=== PATIENT | female | born 1955 | race Caucasian/White ===

== ENCOUNTER → 2017-12-03 | Outpatient (CLI) | payer MEDICARE, MEDICAID ==
[~2017-12-03] MED LIST: ALBU8.5H IH; ALBU8.5H12 IH; AMIT-106 PO; AMIT-108 PO; APIX5TAB PO; ASPI-715 PO; ASPI1TAB17 PO; ATOR40TA69 PO; BECL8.7A6 IH; CEP500 PO; CHOL200025 PO; CHOL500025 PO; CHOLESTEROL MED; CITA-128 PO; EZET10TA41 PO; FLU45SYR25 IM ONLY; FLU60SYR30 IM ONLY; HYDR-2966 PO; IBUP200C72 PO; LEV125 PO; LEV25 PO; LEVO-3 PO; LEVO150T78 PO; MECL25TA27 PO; MECL25TA9 PO; MET50 PO; MORP-1 PO; OMEP-153 PO; OMEP20CA68 PO; OXYGENHOME INH; PANT40TA65 PO; PER PO; PERCOCET; PRAV20TA66 PO; PRAV40TA78 PO; PROP60CA22 PO; RAN150 PO; RANI-318 PO; RIVA20TA PO; SOLI10TA8 PO; SULF-198 PO; TRA50 PO; WARF-18 PO; [UNRECOGNIZED DRUG - CODE] PO
--- NOTE | 2017-12-04 08:56 | RADIOLOGY IMAGING REPORT ---
FACILITY: [facility] - [place], [place] PATIENT NAME: ADRIEL SON : [id number] MR: [id number] V: [id number] EXAM DATE: ORDERING PHYSICIAN: DINORA BLACKMAN TECHNOLOGIST: Marleni Salter PROCEDURE:BILATERAL DIGITAL SCREENING MAMMOGRAM WITH CAD ASSISTED INTERPRETATION AND 3D BREAST TOMOSYNTHESIS. COMPARISON:Prior mammograms dated 10/26/13. INDICATIONS:SCREENING FINDINGS: There is predominant fatty replacement throughout the breasts. The parenchymal pattern has remained stable when allowing for difference in mammographic technique and patient positioning. There is no evidence of malignant appearing mass, malignant appearing calcification or other secondary sign of malignancy in either breast. DIAGNOSTIC CATEGORY 1--NEGATIVE. RECOMMENDATIONS: ROUTINE MAMMOGRAM AND CLINICAL EVALUATION. IMPRESSION: Bi-RADS 1: No significant abnormality is seen. Images were reviewed with R2CAD and 3D breast tomosynthesis. Dictated by: Bebe Gonzalez M.D. on 12/03/2017 at 16:22 Transcribed by: SYBIL on 12/03/2017 at 18:53 Approved by: Bebe Gonzalez M.D. on 12/04/2017 at 8:55 [facility]
== END ==
LOC: MAMO 00:35
PROVIDERS: ATTEND Emergency Medicine
DX: Z12.31 Encounter for screening mammogram for malignant neoplasm of breast (principal)
CPT/HCPCS: 77063; 77067

== ENCOUNTER 2017-12-24 01:00 | Day surgery (SDC) | payer MEDICARE, MEDICAID ==
[~2017-12-24] VITALS: Ht 170.2 cm; Wt 161.9 kg
[2017-12-24] VITALS (7 sets, daily range): BP systolic 84–124; BP diastolic 65–95
[~2017-12-24 01:00] MED LIST changes: +ACET500T68 PO
[2017-12-24] MEDS ORDERED: NORMOSOL R SOLN(*) 1000 ML BAG 1,000 ML IV PRN (08:50)
[2017-12-24] MEDS ORDERED: LIDOCAINE/SOD BICARB 8.4% SYR ID ONE (08:50)
[2017-12-24] MEDS ORDERED: MIDAZOLAM 2 MG/2 ML VIAL IVP PRN (08:50)
--- NOTE | 2017-12-24 11:04 | Short(Outpt) Discharge Summary ---
Discharge Summary Reason for Hosp/Final Diag: (1) Constipation Status: Chronic Hospital Course & Plan: Colonoscopy with polypectomy x7 completed without problems. (2) BRBPR (bright red blood per rectum) Status: Chronic Departure Discharge to: Home, Self Care Discharge Instructions Home Meds Active Scripts Cholecalciferol (Vitamin D3) (VITAMIN D3) 2,000 Unit Capsule, 2000 UNIT PO DAILY , #90 CAPSULE 3 Refills Prov:DINORA BLACKMAN MD 11/28/17 Levothyroxine Sodium (LEVOTHYROXINE SODIUM) 150 Mcg Tablet, 150 MCG PO QDAY, # 90 TAB 3 Refills Prov:DINORA BLACKMAN MD 11/28/17 Atorvastatin Calcium (ATORVASTATIN CALCIUM) 40 Mg Tablet, 1 TAB PO QDAY, #90 TAB 3 Refills Prov:DINORA BLACKMAN MD 11/28/17 Apixaban (ELIQUIS) 5 Mg Tablet, 5 MG PO BID, #60 TAB 11 Refills Start taking at the time of next Xareelto dose. Prov:DINORA BLACKMAN MD 09/29/17 Ezetimibe (ZETIA) 10 Mg Tablet, 1 TAB PO QDAY, #90 TAB 3 Refills Prov:DINORA BLACKMAN MD 08/25/17 Morphine Sulfate 15 Mg Tab (MORPHINE SULFATE 15 MG TAB) 15 Mg Tablet, 15 MG PO BID Y for PAIN, #60 TAB Prov:DINORA BLACKMAN MD 07/29/17 Hydrochlorothiazide (HYDROCHLOROTHIAZIDE) 25 Mg Tablet, 0.5 TAB PO QDAY, #15 TAB 11 Refills Prov:DINORA BLACKMAN MD 07/28/17 Solifenacin Succinate (VESICARE) 10 Mg Tablet, 10 MG PO DAILY, #30 TAB 11 Refills Prov:DINORA BLACKMAN MD 02/27/17 Pantoprazole Sodium (PANTOPRAZOLE SODIUM) 40 Mg Tablet.dr, 1 TAB PO HS, #90 TAB 3 Refills Prov:DINORA BLACKMAN MD 02/03/17 Propranolol Hcl (PROPRANOLOL HCL) 60 Mg Cap.sa.24h, 1 CAP PO BID, #180 TAB 3 Refills Prov:DINORA BLACKMAN MD 01/29/17 Meclizine Hcl (MECLIZINE HCL) 25 Mg Tablet, 25 MG PO QID Y for DIZZINESS, #360 TAB 3 Refills Prov:DINORA BLACKMAN MD 10/21/16 Reported Medications Acetaminophen (TYLENOL EXTRA STRENGTH) 500 Mg Tablet, 1-2 TAB PO DAILY Y for PAIN/HEADACHE, TAB 12/17/17 Aspirin/Sod Bicarb/Citric Acid (JAQUELIN-SELTZER ORIGINAL TAB EFF) 1 Each Tablet.eff , 1 EACH PO BID Y for INDIGESTION 10/17/16 Ranitidine Hcl (RANITIDINE HCL) 150 Mg Tablet, 1 TAB PO HS 10/17/16 Omeprazole Magnesium (OMEPRAZOLE MAGNESIUM) 20 Mg Capsule.dr, 1 TAB PO QDAY, CAP 10/17/16 Albuterol Sulfate 90 Mcg/Act (PROAIR HFA 90 MCG/ACT) 8.5 Gm Hfa.aer.ad, 1-2 PUFF IH BID Y for CONGESTION, INHALER 10/17/16 Discontinued Scripts Peg 3350/Na Sulf,Bicarb,Cl/Kcl (GAVILYTE-G SOLUTION) 4,000 Ml Soln.recon, 1 GAL PO ONCE, #1 GAL 0 Refills Prov:JAMAL GARCIA MD 12/02/17 Amitriptyline Hcl (AMITRIPTYLINE HCL) 50 Mg Tablet, 50 MG PO QHS, #90 TAB 3 Refills Prov:DINORA BLACKMAN MD 08/25/17 Follow up Referrals: General Surgery - 01/16/18 @ Surgery, General with Jamal Garcia Md You have a follow up appointment scheduled with Dr. Garcia on 01/16/18, at 11:30am. Diet: Regular Activity: As Tolerated Special Instructions: Your colonoscopy was completed without any problems and your prep was excellent (Good Job!!). I removed 7 polyps from your colon and sent them to pathology. Continue the bowel regimen I put you on when I say you in my office the first time and we'll modify it when I see you back if it's not effective. You can restart your Eliquis on 12/17/17. Problem Qualifiers (1) Constipation: Constipation type: unspecified constipation type Qualified Codes: K59.00 - Constipation, unspecified JAMAL GARCIA MD Dec 24, 2017 11:04
[2017-12-24] MEDS ORDERED: PROPOFOL EMUL(*) 10MG/ML 20 ML 20 ML ONE (12:01)
[2017-12-24] MEDS ORDERED: LIDOCAINE MPF 1% 5 ML VIAL ONE (12:01)
== END 2017-12-24 12:00 | disposition home or self-care (01) ==
LOC: OR 01:00
PROVIDERS: ATTEND Surgery
DX: Z12.11 Encounter for screening for malignant neoplasm of colon (principal); D12.2 Benign neoplasm of ascending colon; D12.3 Benign neoplasm of transverse colon; K63.5 Polyp of colon
CPT/HCPCS: 00811; 45385; 88305; J2001; J2704

== ENCOUNTER 2018-03-13 06:24 | Emergency (ER) | payer MEDICARE, MEDICAID ==
[~2018-03-13 06:24] MED LIST changes: -WARF-18 PO; +WARF5TAB23 PO
--- NOTE | 2018-03-13 06:26 | ER Report ---
History and Physical Time Seen By MD: 06:26 (SOPHIA SHEN DO) HPI/ROS CHIEF COMPLAINT: Woke up with chest pounding HISTORY OF PRESENT ILLNESS: 62-year-old female with a history of atrial fibrillation on Eliquis and hypertension who retired to bed in her usual state of health last night. She wears CPAP when she sleeps. She woke up this morning to a pounding hard and diaphoresis. She notes some chest tightness and shortness of breath. Patient reports she presented with a similar presentation back in 1999. She states at that time she was told she had GERD. Recently patient had an endoscopy in 03/2017, which was unremarkable.. More recently she underwent colonoscopy in December of this year for bright red blood per rectum on [facility]. She had 7 polyps removed. REVIEW OF SYSTEMS: Respiratory: As above Cardiovascular: As above Gastrointestinal: No vomiting, no abdominal pain. Musculoskeletal: No back pain. (SOPHIA SHEN DO) Allergies: Coded Allergies: No Known Drug Allergies (Verified , 03/25/08) Uncoded Allergies: ENVIRONMENTAL (Allergy, Mild, ASTHMA SX, 08/07/12) Home Meds Active Scripts Solifenacin Succinate (VESICARE) 10 Mg Tablet, 10 MG PO DAILY, #90 TAB 1 Refill Prov:DINORA BLACKMAN MD 02/27/18 Pantoprazole Sodium (PANTOPRAZOLE SODIUM) 40 Mg Tablet.dr, 1 TAB PO HS, #90 TAB 3 Refills Prov:DINORA BLACKMAN MD 02/05/18 Cholecalciferol (Vitamin D3) (VITAMIN D3) 2,000 Unit Capsule, 2000 UNIT PO DAILY , #90 CAPSULE 3 Refills Prov:DINORA BLACKMAN MD 11/28/17 Levothyroxine Sodium (LEVOTHYROXINE SODIUM) 150 Mcg Tablet, 150 MCG PO QDAY, # 90 TAB 3 Refills Prov:DINORA BLACKMAN MD 11/28/17 Atorvastatin Calcium (ATORVASTATIN CALCIUM) 40 Mg Tablet, 1 TAB PO QDAY, #90 TAB 3 Refills Prov:DINORA BLACKMAN MD 11/28/17 Apixaban (ELIQUIS) 5 Mg Tablet, 5 MG PO BID, #60 TAB 11 Refills Start taking at the time of next Xareelto dose. Prov:DINORA BALCKMAN MD 09/29/17 Ezetimibe (ZETIA) 10 Mg Tablet, 1 TAB PO QDAY, #90 TAB 3 Refills Prov:DINORA BLACKMAN MD 08/25/17 Morphine Sulfate 15 Mg Tab (MORPHINE SULFATE 15 MG TAB) 15 Mg Tablet, 15 MG PO BID Y for PAIN, #60 TAB Prov:DINORA BLACKMAN MD 07/29/17 Hydrochlorothiazide (HYDROCHLOROTHIAZIDE) 25 Mg Tablet, 0.5 TAB PO QDAY, #15 TAB 11 Refills Prov:DINORA BLACKMAN MD 07/28/17 Propranolol Hcl (PROPRANOLOL HCL) 60 Mg Cap.sa.24h, 1 CAP PO BID, #180 TAB 3 Refills Prov:DINORA BLACKMAN MD 01/29/17 Meclizine Hcl (MECLIZINE HCL) 25 Mg Tablet, 25 MG PO QID Y for DIZZINESS, #360 TAB 3 Refills Prov:DINORA LBACKMAN MD 10/21/16 Reported Medications Acetaminophen (TYLENOL EXTRA STRENGTH) 500 Mg Tablet, 1-2 TAB PO DAILY Y for PAIN/HEADACHE, TAB 12/17/17 Aspirin/Sod Bicarb/Citric Acid (JAQUELIN-SELTZER ORIGINAL TAB EFF) 1 Each Tablet.eff , 1 EACH PO BID Y for INDIGESTION 10/17/16 Ranitidine Hcl (RANITIDINE HCL) 150 Mg Tablet, 1 TAB PO HS 10/17/16 Omeprazole Magnesium (OMEPRAZOLE MAGNESIUM) 20 Mg Capsule.dr, 1 TAB PO QDAY, CAP 10/17/16 Albuterol Sulfate 90 Mcg/Act (PROAIR HFA 90 MCG/ACT) 8.5 Gm Hfa.aer.ad, 1-2 PUFF IH BID Y for CONGESTION, INHALER 10/17/16 Past Medical/Surgical History Past Medical History Neurologic: Reports hx of: migraine Cardiovascular: Reports hx of: atrial fibrillation hyperlipidemia hypertension Respiratory: Reports hx of: asthma sleep apnea Gastrointestinal: Reports hx of: GERD Genitourinary: Reports hx of: other history (urinary incontinence) Endocrine: Reports hx of: hypothyroidism Past Surgical History HEENT: Reports hx of: tonsillectomy Gastrointestinal: Reports hx of: cholecystectomy Gynecologic: Reports hx of: hysterectomy Musculoskeletal: Reports hx of: arthroscopy (knees) (SOPHIA SHEN DO) Reviewed Nurses Notes: Yes Old Medical Records Reviewed: Yes (SOPHIA SHEN DO) Hx Smoking: Yes (SMOKED 1/2 TO 1 PPD FOR 26 YEARS. CHEWED TOBACCO IN TEENS.) Smoking Status: Former Smoker Hx Substance Use Disorder: No Hx Alcohol Use: No (SOPHIA SHEN DO) Constitutional Vital Sign - Last 24 Hours 03/13/18 03/13/18 03/13/18 03/13/18 06:27 06:27 06:30 06:39 Temp 98.9 Pulse 94 92 Resp 20 20 B/P (MAP) 126/96 (106) 126/96 122/83 (96) Pulse Ox 89 91 O2 Delivery Room Air 03/13/18 03/13/18 03/13/18 06:44 06:59 07:00 Pulse 87 84 Resp 15 17 B/P (MAP) 108/79 (89) Pulse Ox 93 91 (WING IGLESIAS MD) Physical Exam General Appearance: The patient is alert, has no immediate need for airway protection and no current signs of toxicity. Mild distress, vital signs stable , afebrile, skin warm, dry, pink HEENT: Pupils equal and round no injection. Oropharynx without redness or exudate, mucous. Membranes are moist Respiratory: Chest is non tender, lungs are clear to auscultation. No wheezing or rails Cardiac: Regular rate and rhythm, distant heart sounds Gastrointestinal: Abdomen is soft and non tender, no masses, bowel sounds normal. Musculoskeletal: Neck: Neck is supple and non tender. No JVD Extremities have full range of motion and are non tender. Skin: No rashes or lesions. DIFFERENTIAL DIAGNOSIS: After history and physical exam differential diagnosis was considered for chest pain including but not limited to myocardial ischemia, pericarditis pulmonary embolus, chest wall pain, pleural inflammation palpitations, anxiety, GERD and pulmonary infectious causes. (SOPHIA SHEN DO) Medical Decision Making Data Points Result Diagram: 03/13/18 0636 03/13/18 0636 Laboratory Hematology Test 03/13/18 06:36 03/13/18 10:06 Red Blood Count 5.16 M/uL (4.17-5.56) Mean Corpuscular Volume 96.1 fL (80.0-96.0) Mean Corpuscular Hemoglobin 32.6 pg (26.0-33.0) Mean Corpuscular Hemoglobin Concent 33.9 g/dL (32.0-36.0) Red Cell Distribution Width 14.3 % (11.5-14.5) Mean Platelet Volume 8.7 fL (7.2-11.1) Neutrophils (%) (Auto) 60.8 % (39.4-72.5) Lymphocytes (%) (Auto) 27.3 % (17.6-49.6) Monocytes (%) (Auto) 8.6 % (4.1-12.4) Eosinophils (%) (Auto) 2.6 % (0.4-6.7) Basophils (%) (Auto) 0.7 % (0.3-1.4) Nucleated RBC Relative Count (auto) 0.1 /100WBC Neutrophils # (Auto) 4.5 K/uL (2.0-7.4) Lymphocytes # (Auto) 2.0 K/uL (1.3-3.6) Monocytes # (Auto) 0.6 K/uL (0.3-1.0) Eosinophils # (Auto) 0.2 K/uL (0.0-0.5) Basophils # (Auto) 0.1 K/uL (0.0-0.1) Nucleated RBC Absolute Count (auto) 0.01 K/uL D-Dimer Quantitative (PE/DVT) < 0.27 ug/ml (0-0.50) Sodium Level 141 mmol/L (137-145) Potassium Level 3.4 mmol/L (3.5-5.0) Chloride Level 102 mmol/L (98-107) Carbon Dioxide Level 28 mmol/L (22-31) Blood Urea Nitrogen 11 mg/dl (7-18) Creatinine 0.90 mg/dl (0.52-1.04) Glomerular Filtration Rate Calc > 60.0 Random Glucose 109 mg/dl (75-110) Calcium Level 10.2 mg/dl (8.4-10.2) Total Bilirubin 0.7 mg/dl (0.2-1.3) Aspartate Amino Transf (AST/SGOT) 23 U/L (0-35) Alanine Aminotransferase (ALT/SGPT) 26 U/L (0-56) Alkaline Phosphatase 115 U/L (0-126) B-Type Natriuretic Peptide 60 pg/ml (0-100) Total Protein 7.4 gm/dl (6.3-8.2) Albumin 3.8 g/dl (3.5-5.0) Troponin I < 0.012 ng/ml Chemistry Test 03/13/18 06:36 03/13/18 10:06 White Blood Count 7.5 k/uL (4.5-11.0) Red Blood Count 5.16 M/uL (4.17-5.56) Hemoglobin 16.8 g/dL (12.0-16.0) Hematocrit 49.6 % (34.0-47.0) Mean Corpuscular Volume 96.1 fL (80.0-96.0) Mean Corpuscular Hemoglobin 32.6 pg (26.0-33.0) Mean Corpuscular Hemoglobin Concent 33.9 g/dL (32.0-36.0) Red Cell Distribution Width 14.3 % (11.5-14.5) Platelet Count 273 K/uL (150-450) Mean Platelet Volume 8.7 fL (7.2-11.1) Neutrophils (%) (Auto) 60.8 % (39.4-72.5) Lymphocytes (%) (Auto) 27.3 % (17.6-49.6) Monocytes (%) (Auto) 8.6 % (4.1-12.4) Eosinophils (%) (Auto) 2.6 % (0.4-6.7) Basophils (%) (Auto) 0.7 % (0.3-1.4) Nucleated RBC Relative Count (auto) 0.1 /100WBC Neutrophils # (Auto) 4.5 K/uL (2.0-7.4) Lymphocytes # (Auto) 2.0 K/uL (1.3-3.6) Monocytes # (Auto) 0.6 K/uL (0.3-1.0) Eosinophils # (Auto) 0.2 K/uL (0.0-0.5) Basophils # (Auto) 0.1 K/uL (0.0-0.1) Nucleated RBC Absolute Count (auto) 0.01 K/uL D-Dimer Quantitative (PE/DVT) < 0.27 ug/ml (0-0.50) Glomerular Filtration Rate Calc > 60.0 Calcium Level 10.2 mg/dl (8.4-10.2) Total Bilirubin 0.7 mg/dl (0.2-1.3) Aspartate Amino Transf (AST/SGOT) 23 U/L (0-35) Alanine Aminotransferase (ALT/SGPT) 26 U/L (0-56) Alkaline Phosphatase 115 U/L (0-126) B-Type Natriuretic Peptide 60 pg/ml (0-100) Total Protein 7.4 gm/dl (6.3-8.2) Albumin 3.8 g/dl (3.5-5.0) Troponin I < 0.012 ng/ml Coagulation Test 03/13/18 06:36 D-Dimer Quantitative (PE/DVT) < 0.27 ug/ml (WING IGLESIAS MD) EKG/Imaging EKG Interpretation 12 lead EK Rhythm: Atrial fibrillation rate of 88 bpm [place]: normal QRS: Low voltage QRS, old inferior Q waves, old anterior Q waves ST segments: normal, no evidence of ischemia, no old EKGs for comparison Imaging X-ray: Single view portable chest x-ray was obtained. I viewed the images myself on the PACS system. My interpretation of the images is: No infiltrate, borderline cardiomegaly, no effusion, comparison to previous chest x-ray dated 10/19/12, no significant change. The radiologist interpretation had no clinically significant variation from this interpretation. (SOPHIA SHEN DO) ED Course/Re-evaluation Clinical Indication for ER IV: IV Access (SOPHIA SHEN DO) ED Course 30 minutes of what the patient describes as palpitations that woke her out of sleep at 0530. She denies chest pain, nausea, diaphoresis, or shortness of breath. She has an abnormal EKG in the emergency department but no acute ischemic changes noted. She has known atrial fibrillation evidence on our requests. She was observed in the emergency department for 6 hours. She did not have any return of her symptoms. She had 2 troponins 4 hours apart, and both were negative. She does wear a CPAP machine at night. She has not been in RVR while in the emergency department. I do not think the source of her discomfort is cardiac ischemia or dysrhythmia. She will continue her prescribed home medication management, and follow-up with her primary care doctor tomorrow. Decision to Disposition Date: Mar 13, 2018 Decision to Disposition Time: 12:04 (WING IGLEISAS MD) Depart Departure Latest Vital Signs Vital Signs Date Time Temp Pulse Resp B/P (MAP) Pulse Ox O2 Delivery O2 Flow Rate FiO2 03/13/18 07:00 108/79 (89) 03/13/18 06:59 84 17 91 03/13/18 06:27 98.9 Room Air (WING IGLESIAS MD) Impression: Primary Impression: Heart palpitations Condition: Improved Disposition: HOME OR SELF-CARE Referrals: DINORA BLACKMAN MD (PCP) Patient Instructions: Palpitations (ED) SOPHIA SHEN DO Mar 13, 2018 06:26 WING IGLESIAS MD Mar 13, 2018 12:08
[2018-03-13] MEDS ORDERED: ASPIRIN 81 MG CHEW PO ONE (06:35)
[2018-03-13 06:44] LABS: PLATELET COUNT, AUTOMATED 273 K/uL (150-450)
--- NOTE | 2018-03-13 06:56 | RADIOLOGY IMAGING REPORT ---
FACILITY: [facility] PATIENT NAME: Melany Baker : 1955 MR: [id number] V: [id number] EXAM DATE: ORDERING PHYSICIAN: SOPHIA SHEN TECHNOLOGIST: Location: [facility] Patient: Melany Baker : 1955 Visit/Account:[id number] Date of Sevice: 03/13/2018 PORTABLE CHEST: Indication: Chest pain and tachycardia. Technique: A single frontal film was obtained. Comparison: 10/19/2012 Skeletal and soft tissue structures: Intact and unchanged. Heart and mediastinum: Within normal limits for portable technique. Lung lara: Well-expanded. No focal parenchymal opacities. No vascular congestion. Pleural spaces: Unremarkable. Impression: No acute process or significant change. Report Dictated By: Kiel Mariano MD at 03/13/2018 6:51 AM Report E-Signed By: Kiel Mariano MD at 03/13/2018 6:52 AM WSN:[id number]
--- NOTE | 2018-03-13 08:31 | EKG ---
FACILITY: [facility] PATIENT NAME: ADRIEL SON : [id number] MR: [id number] V: [id number] EXAM DATE: ORDERING PHYSICIAN: SOPHIA SHEN TECHNOLOGIST: LORETA Kellogg Reason : CARDIAC Blood Pressure : / mmHG Vent. Rate : 088 BPM Atrial Rate : 122 BPM P-R Int : 000 ms QRS Dur : 084 ms QT Int : 354 ms P-R-T Axes : 000 -02 069 degrees QTc Int : 428 ms Atrial fibrillation Low voltage QRS Cannot rule out Inferior infarct , age undetermined Cannot rule out Anterior infarct , age undetermined Abnormal ECG No previous ECGs available Confirmed by ANOOP STANFORD ([id number]) on 03/13/2018 4:56:41 PM Referred By: HERMELINDA Confirmed By:ANOOP STANFORD
[2018-03-13 12:00] VITALS: BP 90/78
== END 2018-03-13 12:15 | disposition home or self-care (01) ==
LOC: ER 06:26
DX: R00.2 Palpitations (principal)
CPT/HCPCS: 36415; 71045; 83880; 84484; 85025; 85379; 93005; 99284; A9270; 82040; 82247; 82310; 82374; 82435; 82565; 82947; 84075; 84132; 84155; 84295; 84450; 84460; 84520

== ENCOUNTER → 2018-04-03 | Outpatient (CLI) | payer MEDICARE, MEDICAID ==
[~2018-04-03] MED LIST changes: +BARIUM SULFATE 176 GM BTL PO ONE; +BARIUM SULFATE 340 GM POWD ONE
--- NOTE | 2018-04-03 12:46 | RADIOLOGY IMAGING REPORT ---
FACILITY: [facility] [place] PATIENT NAME: Melany Baker : 1955 MR: [id number] V: [id number] EXAM DATE: ORDERING PHYSICIAN: DINORA BLACKMAN TECHNOLOGIST: Location: [facility] Patient: Melany Baker : 1955 Visit/Account:[id number] Date of Sevice: 04/03/2018 Exam type: ESOPHAGRAM History: Dysphagia Comparison: None. Findings: Double contrast esophagram was performed with thick and thin barium. There is a small hiatal hernia with a moderate amount of gastroesophageal reflux. There is mild narrowing at the lower esophageal s phincter. No mucosal erosions were identified. The fluoroscopy dose area product was 834.82 micro-G ray per meter squared IMPRESSION: 1. Small hiatal hernia with a moderate amount of gastroesophageal reflux and mild narrowing at the l ower esophageal sphincter Report Dictated By: Bebe Gonzalez MD at 04/03/2018 12:41 PM Report E-Signed By: Bebe Gonzalez MD at 04/03/2018 12:43 PM WSN:[email or web address]
== END ==
LOC: RAD 07:03
PROVIDERS: ATTEND Emergency Medicine
DX: K44.9 Diaphragmatic hernia without obstruction or gangrene (principal); K21.9 Gastro-esophageal reflux disease without esophagitis; K22.2 Esophageal obstruction
CPT/HCPCS: 74220

== ENCOUNTER → 2018-04-17 | Outpatient (CLI) | payer MEDICARE, MEDICAID ==
[~2018-04-17] MED LIST changes: -BARIUM SULFATE 176 GM BTL PO ONE; -BARIUM SULFATE 340 GM POWD ONE
== END ==
LOC: LAB 11:42
PROVIDERS: ATTEND Emergency Medicine
DX: E78.5 Hyperlipidemia, unspecified (principal)
CPT/HCPCS: 36415; 82465; 83718; 84478

== ENCOUNTER 2018-06-10 00:56 | Day surgery (SDC) | payer MEDICARE, MEDICAID ==
[~2018-06-10] VITALS: Ht 167.6 cm; Wt 168.7 kg
[~2018-06-10 00:56] MED LIST changes: +OMEP-125 PO; +RANI-366 PO
[2018-06-10] MEDS ORDERED: ONDANSETRON 4 MG/2 ML VIAL ONE (07:15)
[2018-06-10] MEDS ORDERED: PROPOFOL EMUL(*) 10MG/ML 20 ML 20 ML ONE ×2 (07:15→11:17)
[2018-06-10] MEDS ORDERED: fentaNYL CITR 100 MCG/2 ML AMP ONE (07:15)
[2018-06-10] MEDS ORDERED: LIDOCAINE MPF 1% 5 ML VIAL ONE (07:15)
[2018-06-10] MEDS ORDERED: DEXAMETHASONE SOD PHOS 10MG/ML ONE (07:15)
[2018-06-10] MEDS ORDERED: ROCURONIUM BROM 10 MG/ML 10 ML ONE (07:15)
[2018-06-10] MEDS ORDERED: NORMOSOL R SOLN(*) 1000 ML BAG 1,000 ML IV PRN (11:30)
[2018-06-10] MEDS ORDERED: LIDOCAINE/SOD BICARB 8.4% SYR ID ONE (11:30)
[2018-06-10 11:35] VITALS: BP 124/77
[2018-06-10 12:33] VITALS: BP 83/43
--- NOTE | 2018-06-10 12:39 | Short(Outpt) Discharge Summary ---
Discharge Summary Reason for Hosp/Final Diag: (1) Dysphagia Status: Chronic Hospital Course & Plan: EGD with esophageal wire-guided bougie dilation completed without problems. Departure Discharge to: Home, Self Care Discharge Instructions Home Meds Active Scripts Meclizine Hcl (MECLIZINE HCL) 25 Mg Tablet, 25 MG PO QID Y for DIZZINESS, #360 TAB 3 Refills Prov:DINORA BLACKMAN MD 05/04/18 Solifenacin Succinate (VESICARE) 10 Mg Tablet, 10 MG PO DAILY, #90 TAB 1 Refill Prov:DINORA BLACKMAN MD 02/27/18 Pantoprazole Sodium (PANTOPRAZOLE SODIUM) 40 Mg Tablet.dr, 1 TAB PO HS, #90 TAB 3 Refills Prov:DINORA BLACKMAN MD 02/05/18 Cholecalciferol (Vitamin D3) (VITAMIN D3) 2,000 Unit Capsule, 2000 UNIT PO DAILY , #90 CAPSULE 3 Refills Prov:DINORA BLACKMAN MD 11/28/17 Levothyroxine Sodium (LEVOTHYROXINE SODIUM) 150 Mcg Tablet, 150 MCG PO QDAY, # 90 TAB 3 Refills Prov:DINORA BLACKMAN MD 11/28/17 Atorvastatin Calcium (ATORVASTATIN CALCIUM) 40 Mg Tablet, 1 TAB PO QDAY, #90 TAB 3 Refills Prov:DINORA BLACKMAN MD 11/28/17 Apixaban (ELIQUIS) 5 Mg Tablet, 5 MG PO BID, #60 TAB 11 Refills Start taking at the time of next Xareelto dose. Prov:DINORA BLACKMAN MD 09/29/17 Ezetimibe (ZETIA) 10 Mg Tablet, 1 TAB PO QDAY, #90 TAB 3 Refills Prov:DINORA BLACKMAN MD 08/25/17 Morphine Sulfate 15 Mg Tab (MORPHINE SULFATE 15 MG TAB) 15 Mg Tablet, 15 MG PO BID Y for PAIN, #60 TAB Prov:DINORA BLACKMAN MD 07/29/17 Propranolol Hcl (PROPRANOLOL HCL) 60 Mg Cap.sa.24h, 1 CAP PO BID, #180 TAB 3 Refills Prov:DINORA BLACKMAN MD 01/29/17 Reported Medications Ranitidine Hcl (ZANTAC) 150 Mg Tablet, 2 TAB PO HS, TAB 05/12/18 Acetaminophen (TYLENOL EXTRA STRENGTH) 500 Mg Tablet, 1-2 TAB PO DAILY Y for PAIN/HEADACHE, TAB 12/17/17 Aspirin/Sod Bicarb/Citric Acid (JAQUELIN-SELTZER ORIGINAL TAB EFF) 1 Each Tablet.eff , 1 EACH PO BID Y for INDIGESTION 10/17/16 Albuterol Sulfate 90 Mcg/Act (PROAIR HFA 90 MCG/ACT) 8.5 Gm Hfa.aer.ad, 1-2 PUFF IH BID Y for CONGESTION, INHALER 10/17/16 Discontinued Reported Medications Omeprazole (OMEPRAZOLE) 20 Mg Capsule.dr, 1 CAP PO QDAY, CAP 05/12/18 Diet: Regular Activity: As Tolerated Special Instructions: Your endoscopy was completed without problems and I dilated your esophagus. You have some mild inflamation in your lower stomach which isn't uncommon but if you are developing pain in your upper abdomen then we may consider changing your stomach medications. Please call my office if you have any questions or concerns about your GI symptoms or if you start to have food hanging up in your esophagus. Problem Qualifiers (1) Dysphagia: Dysphagia type: esophageal phase Qualified Codes: R13.10 - Dysphagia, unspecified JAMAL GARCIA MD Jun 10, 2018 12:39
[2018-06-10 13:00] VITALS: BP 110/69
[2018-06-10 13:04] VITALS: BP 109/78
[2018-06-10 13:07] VITALS: BP 118/92
== END 2018-06-10 13:22 | disposition home or self-care (01) ==
LOC: OR 00:56
PROVIDERS: ATTEND Surgery
DX: K44.9 Diaphragmatic hernia without obstruction or gangrene (principal); K29.70 Gastritis, unspecified, without bleeding
CPT/HCPCS: 43248; J1100; J2001; J2405; J2704; J3010

== ENCOUNTER → 2018-08-28 | Outpatient (CLI) | payer MEDICARE, MEDICAID ==
[~2018-08-28] MED LIST changes: +FLU180SY11 IM; +PNEU0.5D3 IM
== END ==
LOC: LAB 09:34
PROVIDERS: ATTEND Emergency Medicine
DX: R73.09 Other abnormal glucose (principal)
CPT/HCPCS: 36415; 83036

== ENCOUNTER → 2018-10-26 | Outpatient (CLI) | payer MEDICARE, MEDICAID ==
[~2018-10-26] MED LIST changes: +CIPR-344 PO; +METF500T4 PO
[2018-10-26 15:24] LABS: PLATELET COUNT, AUTOMATED 297 K/uL (150-450)
== END ==
LOC: LAB 14:17
PROVIDERS: ATTEND Emergency Medicine
DX: R30.0 Dysuria (principal); E21.0 Primary hyperparathyroidism; R51 Headache; N39.0 Urinary tract infection, site not specified
CPT/HCPCS: 36415; 81001; 82310; 82374; 82435; 82565; 82947; 84132; 84295; 84443; 84520; 85025; 87077; 87088; 87186

== ENCOUNTER → 2019-01-26 | Outpatient (CLI) | payer MEDICARE, MEDICAID ==
[~2019-01-26] MED LIST changes: +CIPR-214 PO; +TRAZ50TA34 PO
[2019-01-26 14:44] LABS: PLATELET COUNT, AUTOMATED 307 K/uL (150-450)
== END ==
LOC: LAB 14:00
PROVIDERS: ATTEND Emergency Medicine
DX: E21.0 Primary hyperparathyroidism (principal)
CPT/HCPCS: 36415; 81001; 82310; 82374; 82435; 82565; 82947; 84132; 84295; 84520; 85007; 85027

== ENCOUNTER → 2019-01-29 | Outpatient (CLI) | payer MEDICARE, MEDICAID | LOC: LAB 10:07 | PROVIDERS: ATTEND Emergency Medicine | DX: E21.0 Primary hyperparathyroidism (principal); N39.0 Urinary tract infection, site not specified | CPT/HCPCS: 36415; 82310 ==

== ENCOUNTER 2019-02-01 10:05 | Outpatient (RCR) | payer MEDICARE, MEDICAID ==
[2019-02-02] MEDS ORDERED: IOPAMIDOL 61% 100 ML INFUS BTL 100 ML ONE (08:02)
--- NOTE | 2019-02-02 08:37 | RADIOLOGY IMAGING REPORT ---
FACILITY: [facility] PATIENT NAME: Melany Baker : 1955 MR: [id number] V: [id number] EXAM DATE: ORDERING PHYSICIAN: DINORA BLACKMAN TECHNOLOGIST: Location: [facility] [place] Patient: Melany Baker : 1955 Visit/Account:[id number] Date of Sevice: 02/02/2019 DEXA Scan Clinical history: Primary hyperparathyroidism. Comparison: 02/11/2017. . FOREARM: The bone mineral density (BMD) measured in the ULTRA DISTAL left forearm, where trabecular bone predo minates, correlates with a Z-score of -0.6 and a T-score of -2.0 which is osteopenic as defined by th e World Health Organization. The corresponding risk of fracture in the distal forearm is moderately increased compared with a young adult reference population. This value has decreased by 1.4 % since t he prior study. More than 5% change is considered significant. The bone mineral density (BMD) in the MIDSHAFT of the forearm, where cortical bone predominates, malcolm elates with a T-score of -2.1 which is osteopenic as defined by the World Health Organization. The co rresponding risk of fracture in the midshaft of the forearm is moderately increased compared with a y oung adult reference population. . IMPRESSION: Left Forearm: Osteopenic. There has been no significant change in the bone mineral density since the previous exam. The next DEXA scan of this patient should include the following sites: Left forearm. FRAX? WHO Fracture Risk Assessment Tool link: <http://www.shef.ac.uk/FRAX/tool.jsp?locationValue=9> PLEASE NOTE: 1) The World Health Organization defines low BMD as follows: T-score Normal > -1 Osteopenia < -1 and > -2.5 Osteoporosis < -2.5 without fractures Established osteoporosis < -2.5 with fractures 2) In general, you may wish to consider: Diagnosis Treatment Follow-up DEXA Normal BMD Prevention 2-3 years Osteopenia Prevention/therapy 1-2 years Osteoporosis Therapy Yearly 3) Fracture risk estimated from the T-score is more accurate for vertebral fractures (often spontane ous) than for hip fractures. Report Dictated By: Antwan Henderson MD at 02/02/2019 8:27 AM Report E-Signed By: Antwan Henderson MD at 02/02/2019 8:33 AM WSN:[email or web address]
--- NOTE | 2019-02-02 11:01 | RADIOLOGY IMAGING REPORT ---
FACILITY: [facility] - [place] PATIENT NAME: Melany Baker : 1955 MR: [id number] V: [id number] EXAM DATE: ORDERING PHYSICIAN: DINORA BLACKMAN TECHNOLOGIST: [place] [facility] [place] : 1955 Visit/Account:[id number] Date of Sevice: 02/02/2019 CT ABDOMEN PELVIS W & W/O CONTRAST HISTORY: Abdominal pain TECHNIQUE: Axial images acquired through the abdomen/pelvis both with and without IV contrast.. [place] nal and sagittal reformatting also performed.Dose Lowering Technique One of the following dose optimization techniques was utilized in the performance of this exam: Autom ated exposure control; adjustment of the mA and/or kV according to the patient's size; or use of an i terative reconstruction technique. Specific details can be referenced in the facility's radiology C T exam operational policy. CONTRAST: 90 mL Isovue-300 COMPARISON: None. FINDINGS: Visualized lung bases: Mild cardiomegaly Hepatobiliary: There postsurgical changes from a cholecystectomy Spleen: Negative. Adrenals: Negative. Pancreas: There is very slight haziness of the peripancreatic fat adjacent to the pancreatic head Kidneys ureters and bladder: There is no demonstration of urolithiasis, hydronephrosis or hydroureter . 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 There are two vague areas of hypoperfusion seen in the interpolar region of the left kidney. The bladder is mostly decompressed therefore not i deally evaluated Genitalia: Hysterectomy GI: There is a small hiatal hernia and mild thickening gastric fundus Vessels/spaces/nodes: There shotty retroperitoneal lymph nodes Bones/soft tissues: There is a small umbilical hernia containing fat. There are spondylotic changes in the thoracolumbar spine Additional findings: None pertinent. IMPRESSION: Mild cardiomegaly Postsurgical changes from a cholecystectomy and hysterectomy There is very slight haziness of the peripancreatic fat adjacent to the pancreatic head. This could be related to acute pancreatitis although clinical correlation needed. Duplication of left renal collecting system There are two vague areas of hypoperfusion seen in the interpolar region of the left kidney. This co uld be related to infiltrative mass lesions, pyelonephritis or areas of infarct. Small hiatal hernia with mild thickening of the gastric fundus. This could be related to gastroesoph ageal reflux however clinical correlation needed to exclude other etiologies Report Dictated By: Bebe Gonzalez MD at 02/02/2019 10:34 AM Report E-Signed By: Bebe Gonzalez MD at 02/02/2019 10:55 AM WSN:[id number]
== END 2019-02-12 18:00 | disposition home or self-care (01) ==
LOC: CT 10:05 → EDSTATUS 02-02 10:04 → CT 02-12 18:00
PROVIDERS: ATTEND Emergency Medicine
DX: I51.7 Cardiomegaly (principal); Q63.8 Other specified congenital malformations of kidney; K44.9 Diaphragmatic hernia without obstruction or gangrene; Z90.49 Acquired absence of other specified parts of digestive tract; Z90.710 Acquired absence of both cervix and uterus; M85.832 Other specified disorders of bone density and structure, left forearm
CPT/HCPCS: 36415; 74178; 77080; 81001; 85025; 86140; 87077; 87088; 87186; 96365; J1335; J7050; Q9967

== ENCOUNTER → 2019-02-02 | Outpatient (CLI) | payer MEDICARE, MEDICAID ==
[2019-02-02 14:21] LABS: PLATELET COUNT, AUTOMATED 330 K/uL (150-450)
== END ==
LOC: LAB 13:54
PROVIDERS: ATTEND Emergency Medicine
DX: N39.0 Urinary tract infection, site not specified (principal)
CPT/HCPCS: 36415; 85025; 86140

== ENCOUNTER 2019-02-08 10:15 | Outpatient (RCR) | payer MEDICARE, MEDICAID ==
[2019-02-02] MEDS: ERTAPENEM(*) 1 GM VIAL 1 GM in NS(*) 0.9% 100 ML ADDVANT BAG 100 ML IVPB PRN (15:45)
[2019-02-02] MEDS: NS(*) 0.9% 100 ML BAG 100 ML IVPB PRN (15:47)
[2019-02-03] MEDS: ERTAPENEM(*) 1 GM VIAL 1 GM in NS(*) 0.9% 100 ML ADDVANT BAG 100 ML IVPB PRN (13:31)
[2019-02-03] MEDS: NS(*) 0.9% 100 ML BAG 100 ML IVPB PRN (13:31)
[2019-02-03 13:32] VITALS: BP 122/77
[2019-02-03 14:04] VITALS: BP 122/87
[2019-02-04 11:28] VITALS: BP 115/82
[2019-02-04] MEDS: ERTAPENEM(*) 1 GM VIAL 1 GM in NS(*) 0.9% 100 ML ADDVANT BAG 100 ML IVPB PRN (12:00)
[2019-02-04] MEDS: NS(*) 0.9% 100 ML BAG 100 ML IVPB PRN (12:02)
[2019-02-04 12:35] VITALS: BP 100/70
[2019-02-05] MEDS: ERTAPENEM(*) 1 GM VIAL 1 GM in NS(*) 0.9% 100 ML ADDVANT BAG 100 ML IVPB PRN (10:31)
[2019-02-05] MEDS: NS(*) 0.9% 100 ML BAG 100 ML IVPB PRN (10:32)
[2019-02-05 10:34] VITALS: BP 101/69
[2019-02-05 11:16] VITALS: BP 99/69
[2019-02-06] MEDS: ERTAPENEM(*) 1 GM VIAL 1 GM in NS(*) 0.9% 100 ML ADDVANT BAG 100 ML IVPB PRN (10:12)
[2019-02-06] MEDS: NS(*) 0.9% 100 ML BAG 100 ML IVPB PRN (10:13)
[2019-02-06 10:22] VITALS: BP 101/72
[2019-02-07] MEDS: ERTAPENEM(*) 1 GM VIAL 1 GM in NS(*) 0.9% 100 ML ADDVANT BAG 100 ML IVPB PRN (10:18)
[2019-02-07] MEDS: NS(*) 0.9% 100 ML BAG 100 ML IVPB PRN (10:18)
[2019-02-07 10:19] VITALS: BP 121/84
[2019-02-07 10:53] VITALS: BP 102/74
[~2019-02-08 10:15] MED LIST changes: +DEXTROSE 5%(*) 100 ML BAG 100 ML IVPB PRN; +LIDOCAINE/SOD BICARB 8.4% SYR ID PRN; -OMEP-125 PO; +OMEP-126 PO; -RANI-366 PO; +RANI-54 PO; -TRAZ50TA34 PO; +TRAZ50TA52 PO
[2019-02-08 10:24] VITALS: BP 118/76
[2019-02-08] MEDS: ERTAPENEM(*) 1 GM VIAL 1 GM in NS(*) 0.9% 100 ML ADDVANT BAG 100 ML IVPB PRN (10:39)
[2019-02-08] MEDS: NS(*) 0.9% 100 ML BAG 100 ML IVPB PRN (10:39)
[2019-02-15] MEDS ORDERED: PANT40TA65 PO (11:19)
[2019-03-17] MEDS ORDERED: PANT40TA65 PO (10:07)
[2019-03-17] MEDS ORDERED: UMEC62.5 INH (10:17)
[2019-03-18] MEDS ORDERED: MIRA50TA PO (11:56)
[2019-04-01] MEDS ORDERED: MORP-1 PO (10:30)
[2019-04-06] MEDS ORDERED: CYAN25007 SL (11:48)
[2019-04-23] MEDS ORDERED: PANT40TA65 PO (10:43)
[2019-04-27] MEDS ORDERED: PANT40TA65 PO (14:46)
== END 2019-05-03 16:24 | disposition home or self-care (01) ==
LOC: SPU 10:15
PROVIDERS: ATTEND Emergency Medicine
DX: N12 Tubulo-interstitial nephritis, not specified as acute or chronic (principal)
CPT/HCPCS: 81001; 96365; 96366; J1335; J7050

== ENCOUNTER → 2019-04-13 | Outpatient (CLI) | payer MEDICARE, MEDICAID ==
[~2019-04-13] MED LIST changes: +BARIUM SULFATE 176 GM BTL PO ONE; +BARIUM SULFATE 340 GM POWD ONE; +CYAN25007 SL; -DEXTROSE 5%(*) 100 ML BAG 100 ML IVPB PRN; -LIDOCAINE/SOD BICARB 8.4% SYR ID PRN; +MIRA50TA PO; +OMEP-125 PO; -OMEP-126 PO; +RANI-366 PO; -RANI-54 PO; +TRAZ50TA34 PO; -TRAZ50TA52 PO; +UMEC62.5 INH
--- NOTE | 2019-04-13 11:14 | EKG ---
FACILITY: [facility] - [place] PATIENT NAME: ADRIEL SON : [id number] MR: [id number] V: [id number] EXAM DATE: ORDERING PHYSICIAN: JAMAL GARCIA TECHNOLOGIST: SIDNEY Test Reason : PRE OP Blood Pressure : / mmHG Vent. Rate : 081 BPM Atrial Rate : 202 BPM P-R Int : 000 ms QRS Dur : 078 ms QT Int : 360 ms P-R-T Axes : 000 -26 -10 degrees QTc Int : 418 ms Atrial fibrillation Low voltage QRS Inferior infarct (cited on or before 13-MAR-2018) Possible Anterolateral infarct (cited on or before 13-MAR-2018) Abnormal ECG When compared with ECG of 13-MAR-2018 06:29, Inverted T waves have replaced nonspecific T wave abnormality in Inferior leads Confirmed by Wolf Izaguirre ([id number]) on 04/13/2019 9:51:58 PM Referred By: RADHA Confirmed By:Wolf Mackenzie
--- NOTE | 2019-04-13 17:54 | RADIOLOGY IMAGING REPORT ---
FACILITY: [facility] - [place] PATIENT NAME: Melany Baker : 1955 MR: [id number] V: [id number] EXAM DATE: ORDERING PHYSICIAN: JAMAL GARCIA TECHNOLOGIST: Location: [facility] - [place] Patient: Melany Baker : 1955 Visit/Account:[id number] Date of Sevice: 04/13/2019 Exam type: XR UPPER GI SERIES W/O KUB History: GERD, epigastric pain, dysphasia Comparison: August 22, [address] of abdomen pelvis February 02, 2019. Findings: Double contrast upper GI series was performed with thick and thin barium and air contrast. Study was limited due to patient's extreme mobility limitation. The patient could not stand for the drinking views of the esophagus there for these were performed in a right lateral projection. There is a mode rate size hiatal hernia with mild narrowing at the lower esophageal sphincter. A large amount of gas troesophageal reflux was observed. No gross abnormality of the stomach or duodenum is identified. T he dose area product was 4339.27 micro-Perez per meter squared IMPRESSION: 1. Limited study due to patient's limited mobility however there was demonstration of a moderate hia dianne hernia with a large amount of gastroesophageal reflux. Mild narrowing at the lower esophageal sp hincter was noted. Report Dictated By: Bebe Gonzalez MD at 04/13/2019 5:45 PM Report E-Signed By: Bebe Gonzalez MD at 04/13/2019 5:49 PM WSN:[id number]
== END ==
LOC: RAD 00:40
PROVIDERS: ATTEND Surgery
DX: K44.9 Diaphragmatic hernia without obstruction or gangrene (principal); R94.31 Abnormal electrocardiogram [ECG] [EKG]
CPT/HCPCS: 74240; 93005

== ENCOUNTER 2019-04-18 03:31 | Emergency (ER) | payer MEDICARE, MEDICAID ==
[~2019-04-18 03:31] MED LIST changes: -BARIUM SULFATE 176 GM BTL PO ONE; -BARIUM SULFATE 340 GM POWD ONE
[2019-04-18] MEDS ORDERED: ASPIRIN 81 MG CHEW PO ONE (04:00)
--- NOTE | 2019-04-18 04:00 | ER Report ---
History and Physical Time Seen By MD: 03:42 Hx. of Stated Complaint: PT REPORTS SHE FEELS LIKE HER HEART HAS BEEN RACING FOR 2-3 HOURS. HX OF AFIB. HPI/ROS CHIEF COMPLAINT: Feels like her heart is racing and having a little bit of chest pain upper left sternum HISTORY OF PRESENT ILLNESS: This is a 63-year-old female. Tonight. Last 2 or 3 hours she has felt like her heart is racing. She has atrial fibrillation. Also little bit of pain in left upper sternum but does not radiate. Nothing makes the pain worse or better. Deep breaths are normal and she is not short of breath. Denies any cough or fevers. No changes in medication. She is on a blood thinner and a beta sridevi. No nausea or vomiting. His been eating and drinking without any problems. Allergies: Coded Allergies: No Known Drug Allergies (Verified , 04/18/19) Uncoded Allergies: ENVIRONMENTAL (Allergy, Mild, ASTHMA SX, 08/07/12) Home Meds Active Scripts Morphine Sulfate 15 Mg Tab (MORPHINE SULFATE 15 MG TAB) 15 Mg Tablet, 15 MG PO BID PRN for PAIN, #60 TAB Prov:DINORA BLACKMAN MD 04/01/19 Mirabegron (MYRBETRIQ) 50 Mg Tab.er.24h, 50 MG PO DAILY for 30 Days, #30 CAP Prov:WILL GUEVARA MD 03/18/19 Umeclidinium [place] (Incruse Ellipta) 62.5 Mcg Blst.w.dev, 1 INHALATION INH DAILY, #1 INHALER 2 Refills Prov:DINORA BLACKMAN MD 03/17/19 Pantoprazole Sodium (PANTOPRAZOLE SODIUM) 40 Mg Tablet.dr, 1 TAB PO BIDAC, #90 TAB 3 Refills Prov:DINORA BLACKMAN MD 03/17/19 Atorvastatin Calcium (ATORVASTATIN CALCIUM) 40 Mg Tablet, 1 TAB PO QDAY, #90 TAB 3 Refills Prov:DINORA BLACKMAN MD 12/09/18 Levothyroxine Sodium (LEVOTHYROXINE SODIUM) 150 Mcg Tablet, 150 MCG PO QDAY, #90 TAB 3 Refills Prov:DINORA BLACKMAN MD 11/10/18 Apixaban (ELIQUIS) 5 Mg Tablet, 5 MG PO BID, #60 TAB 11 Refills Prov:DINORA BLACKMAN MD 10/27/18 Propranolol Hcl (PROPRANOLOL HCL) 60 Mg Cap.sa.24h, 1 CAP PO BID, #180 TAB 3 Refills Prov:DINORA BLACKMAN MD 10/27/18 Metformin Hcl (METFORMIN HCL ER) 500 Mg Tab.er.24, 1 TAB PO QDAY, #90 TAB 3 Refills Prov:DINORA BLACKMAN MD 10/26/18 Ezetimibe (ZETIA) 10 Mg Tablet, 1 TAB PO QDAY, #90 TAB 3 Refills Prov:DINORA BLACKMAN MD 09/04/18 Meclizine Hcl (MECLIZINE HCL) 25 Mg Tablet, 25 MG PO QID PRN for DIZZINESS, #360 TAB 3 Refills Prov:DINORA BLACKMAN MD 05/04/18 Cholecalciferol (Vitamin D3) (VITAMIN D3) 2,000 Unit Capsule, 2000 UNIT PO DAILY, #90 CAPSULE 3 Refills Prov:DINORA BLACKMAN MD 11/28/17 Reported Medications Cyanocobalamin (Vitamin B-12) (VITAMIN B-12) 2,500 Mcg Tab.subl, 2500 MCG SL DAILY 04/06/19 Ranitidine Hcl (ZANTAC) 150 Mg Tablet, 2 TAB PO HS, TAB 05/12/18 Acetaminophen (TYLENOL EXTRA STRENGTH) 500 Mg Tablet, 1-2 TAB PO DAILY PRN for PAIN/HEADACHE, TAB 12/17/17 Aspirin/Sod Bicarb/Citric Acid (JAQUELIN-SELTZER ORIGINAL TAB EFF) 1 Each Tablet.eff, 1 EACH PO BID PRN for INDIGESTION 10/17/16 Albuterol Sulfate 90 Mcg/Act (PROAIR HFA 90 MCG/ACT) 8.5 Gm Hfa.aer.ad, 1-2 PUFF IH BID PRN for CONGESTION, INHALER 10/17/16 Reviewed Nurses Notes: Yes Hx Smoking: Yes (SMOKED 1/2 TO 1 PPD FOR 26 YEARS. CHEWED TOBACCO IN TEENS.) Smoking Status: Former Smoker Hx Substance Use Disorder: No Hx Alcohol Use: No Constitutional Vital Sign - Last 24 Hours 04/18/19 04/18/19 04/18/19 04/18/19 03:34 03:37 03:46 04:00 Temp 98.3 Pulse 75 67 Resp 18 29 B/P (MAP) 122/64 122/64 (83) 103/73 (83) Pulse Ox 91 O2 Delivery Room Air 04/18/19 04/18/19 04/18/19 04/18/19 04:01 04:16 04:30 04:31 Pulse 71 66 71 Resp 10 52 20 B/P (MAP) 99/67 (78) 04/18/19 04/18/19 04/18/19 04/18/19 05:00 05:16 05:21 05:30 Pulse 72 72 Resp 16 17 B/P (MAP) 103/87 (92) 101/71 (81) 04/18/19 04/18/19 04/18/19 04/18/19 05:36 05:51 06:00 06:06 Pulse 68 80 68 Resp 14 18 19 B/P (MAP) 104/69 (81) Physical Exam General Appearance: The patient is alert. No acute distress. Eyes: Pupils are equal, round. No pallor, injection or icterus. ENT: Mucous membranes are moist. Normal oral mucosa. Posterior oropharynx is normal. Neck: Supple and non tender. Respiratory: Lungs are clear to auscultation. Cardiovascular: Irregularly irregular rhythm but with a good rate. No murmurs, gallops or rubs. Normal capillary refill. No edema. Gastrointestinal: Abdomen is soft with some epigastric discomfort with palpation. Nondistended. Normal active bowel sounds. Neurological: Alert and oriented x3. Skin: Warm and dry. No rashes. Musculoskeletal: Extremities are nontender. DIFFERENTIAL DIAGNOSIS: After history and physical exam, differential diagnosis was considered for palpitations, racing heart with current normal heart rate and normal appearing EKG. Also some chest pain and will keep her on the monitor to watch her heart rate and also EKG and labs. Medical Decision Making Data Points Result Diagram: 04/18/19 0342 04/18/19 0342 Laboratory Hematology Test 04/18/19 03:42 Red Blood Count 4.73 M/uL (4.17-5.56) Mean Corpuscular Volume 97.3 fL (80.0-96.0) Mean Corpuscular Hemoglobin 32.1 pg (26.0-33.0) Mean Corpuscular Hemoglobin Concent 32.9 g/dL (32.0-36.0) Red Cell Distribution Width 14.8 % (11.5-14.5) Mean Platelet Volume 9.5 fL (7.2-11.1) Neutrophils (%) (Auto) 58.6 % (39.4-72.5) Lymphocytes (%) (Auto) 31.8 % (17.6-49.6) Monocytes (%) (Auto) 6.9 % (4.1-12.4) Eosinophils (%) (Auto) 2.2 % (0.4-6.7) Basophils (%) (Auto) 0.5 % (0.3-1.4) Nucleated RBC Relative Count (auto) 0.0 /100WBC Neutrophils # (Auto) 4.4 K/uL (2.0-7.4) Lymphocytes # (Auto) 2.4 K/uL (1.3-3.6) Monocytes # (Auto) 0.5 K/uL (0.3-1.0) Eosinophils # (Auto) 0.2 K/uL (0.0-0.5) Basophils # (Auto) 0.0 K/uL (0.0-0.1) Nucleated RBC Absolute Count (auto) 0.00 K/uL Sodium Level 139 mmol/L (137-145) Potassium Level 4.2 mmol/L (3.5-5.0) Chloride Level 106 mmol/L (98-107) Carbon Dioxide Level 25 mmol/L (22-31) Blood Urea Nitrogen 9 mg/dl (7-18) Creatinine 0.90 mg/dl (0.52-1.04) Glomerular Filtration Rate Calc > 60.0 Random Glucose 103 mg/dl (75-110) Calcium Level 10.4 mg/dl (8.4-10.2) Total Bilirubin 0.9 mg/dl (0.2-1.3) Aspartate Amino Transf (AST/SGOT) 17 U/L (0-35) Alanine Aminotransferase (ALT/SGPT) 18 U/L (0-56) Alkaline Phosphatase 149 U/L (0-126) Troponin I < 0.012 ng/ml B-Type Natriuretic Peptide 112 pg/ml (0-100) Total Protein 7.0 g/dl (6.3-8.2) Albumin 3.9 g/dl (3.5-5.0) Chemistry Test 04/18/19 03:42 White Blood Count 7.6 k/uL (4.5-11.0) Red Blood Count 4.73 M/uL (4.17-5.56) Hemoglobin 15.2 g/dL (12.0-16.0) Hematocrit 46.0 % (34.0-47.0) Mean Corpuscular Volume 97.3 fL (80.0-96.0) Mean Corpuscular Hemoglobin 32.1 pg (26.0-33.0) Mean Corpuscular Hemoglobin Concent 32.9 g/dL (32.0-36.0) Red Cell Distribution Width 14.8 % (11.5-14.5) Platelet Count 265 K/uL (150-450) Mean Platelet Volume 9.5 fL (7.2-11.1) Neutrophils (%) (Auto) 58.6 % (39.4-72.5) Lymphocytes (%) (Auto) 31.8 % (17.6-49.6) Monocytes (%) (Auto) 6.9 % (4.1-12.4) Eosinophils (%) (Auto) 2.2 % (0.4-6.7) Basophils (%) (Auto) 0.5 % (0.3-1.4) Nucleated RBC Relative Count (auto) 0.0 /100WBC Neutrophils # (Auto) 4.4 K/uL (2.0-7.4) Lymphocytes # (Auto) 2.4 K/uL (1.3-3.6) Monocytes # (Auto) 0.5 K/uL (0.3-1.0) Eosinophils # (Auto) 0.2 K/uL (0.0-0.5) Basophils # (Auto) 0.0 K/uL (0.0-0.1) Nucleated RBC Absolute Count (auto) 0.00 K/uL Glomerular Filtration Rate Calc > 60.0 Calcium Level 10.4 mg/dl (8.4-10.2) Total Bilirubin 0.9 mg/dl (0.2-1.3) Aspartate Amino Transf (AST/SGOT) 17 U/L (0-35) Alanine Aminotransferase (ALT/SGPT) 18 U/L (0-56) Alkaline Phosphatase 149 U/L (0-126) Troponin I < 0.012 ng/ml B-Type Natriuretic Peptide 112 pg/ml (0-100) Total Protein 7.0 g/dl (6.3-8.2) Albumin 3.9 g/dl (3.5-5.0) EKG/Imaging EKG Interpretation 12 lead EKG: Rhythm: Atrial fibrillation, rate 75 [place]: normal QRS: Low-voltage ST segments: normal Imaging PORTABLE CHEST: Indication: Chest pain. Technique: A single frontal film was obtained. Image quality is suboptimal, due to body habitus. Comparison: 03/13/2018 Skeletal and soft tissue structures: Intact and unchanged. Heart and mediastinum: Stable. Lung lara: Fairly well expanded. No focal opacities. Pleural spaces: Unremarkable. Impression: No acute process or significant change. Report Dictated By: Kiel Mariano MD at 04/18/2019 4:36 AM ED Course/Re-evaluation ED Course Labs unremarkable. Stayed in nature fibrillation with a regular rate. Troponin negative labs otherwise unremarkable. Chest x-ray unremarkable as well. Reviewed all this with the patient. 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 Decision to Disposition Date: April 18, 2019 Decision to Disposition Time: 05:54 Depart Departure Latest Vital Signs Vital Signs Date Time Temp Pulse Resp B/P (MAP) Pulse Ox O2 Delivery O2 Flow Rate FiO2 04/18/19 06:06 68 19 04/18/19 06:00 104/69 (81) 04/18/19 03:34 98.3 91 Room Air Impression: Primary Impression: Chest pain, non-cardiac Additional Impression: Atrial fibrillation Condition: Improved Disposition: HOME OR SELF-CARE Referrals: DINORA BLACKMAN MD (PCP) Patient Instructions: Noncardiac Chest Pain (ED) Additional Instructions: We did not find a cause for your chest pain. No sign of racing heart, with chronic atrial fibrillation. We do not recommend any changes of medication. 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 Problem Qualifiers Additional Impression: Atrial fibrillation Atrial fibrillation type: chronic Qualified Codes: I48.2 - Chronic atrial fibrillation BETHANY BRINK MD April 18, 2019 04:00
[2019-04-18 04:12] LABS: PLATELET COUNT, AUTOMATED 265 K/uL (150-450)
--- NOTE | 2019-04-18 04:27 | EKG ---
FACILITY: [facility] - [place] PATIENT NAME: ADRIEL SON : [id number] MR: [id number] V: [id number] EXAM DATE: ORDERING PHYSICIAN: BETHANY BRINK TECHNOLOGIST: IVETH Test Reason : CHEST PAIN Blood Pressure : / mmHG Vent. Rate : 075 BPM Atrial Rate : 394 BPM P-R Int : 000 ms QRS Dur : 080 ms QT Int : 376 ms P-R-T Axes : 000 -26 056 degrees QTc Int : 419 ms Atrial fibrillation Low voltage QRS Abnormal ECG When compared with ECG of 13-APR-2019 10:48, No significant change was found Confirmed by Wolf Izaguirre ([id number]) on 04/18/2019 7:46:07 AM Referred By: Confirmed By:Wolf Mackenzie
--- NOTE | 2019-04-18 04:42 | RADIOLOGY IMAGING REPORT ---
FACILITY: [facility] [place] PATIENT NAME: Melany Baker : 1955 MR: [id number] V: [id number] EXAM DATE: ORDERING PHYSICIAN: BETHANY BRINK TECHNOLOGIST: Location: [facility] - [place] Patient: Melany Baker : 1955 Visit/Account:[id number] Date of Sevice: 04/18/2019 PORTABLE CHEST: Indication: Chest pain. Technique: A single frontal film was obtained. Image quality is suboptimal, due to body habitus. Comparison: 03/13/2018 Skeletal and soft tissue structures: Intact and unchanged. Heart and mediastinum: Stable. Lung lara: Fairly well expanded. No focal opacities. Pleural spaces: Unremarkable. Impression: No acute process or significant change. Report Dictated By: Kiel Mariano MD at 04/18/2019 4:36 AM Report E-Signed By: Kiel Mariano MD at 04/18/2019 4:39 AM WSN:[id number]
[2019-04-18 06:00] VITALS: BP 104/69
== END 2019-04-18 06:13 | disposition home or self-care (01) ==
LOC: ER 03:36
DX: R07.89 Other chest pain (principal); I48.2 Chronic atrial fibrillation
CPT/HCPCS: 71045; 83880; 84484; 85025; 93005; 99284; A9270; 82040; 82247; 82310; 82374; 82435; 82565; 82947; 84075; 84132; 84155; 84295; 84450; 84460; 84520

== ENCOUNTER 2019-04-28 00:12 | Day surgery (SDC) | payer MEDICARE, MEDICAID ==
[~2019-04-28] VITALS: Ht 170.2 cm; Wt 167.8 kg
[2019-04-28 06:22] VITALS: BP 140/86
[2019-04-28] MEDS ORDERED: PROPOFOL EMUL(*) 10MG/ML 20 ML 60 ML ONE (07:46)
[2019-04-28] MEDS ORDERED: LIDOCAINE MPF 1% 5 ML VIAL ONE (07:46)
[2019-04-28 08:07] VITALS: BP 130/83
--- NOTE | 2019-04-28 08:10 | Short(Outpt) Discharge Summary ---
Discharge Summary Reason for Hosp/Final Diag: (1) GERD (gastroesophageal reflux disease) Status: Chronic Hospital Course & Plan: EGD with biopsies completed without problems. Departure Discharge to: Home, Self Care Discharge Instructions Home Meds Active Scripts Pantoprazole Sodium (PANTOPRAZOLE SODIUM) 40 Mg Tablet.dr, 1 TAB PO BIDAC, #60 TAB 3 Refills Prov:JAMAL GARCIA MD 04/27/19 Morphine Sulfate 15 Mg Tab (MORPHINE SULFATE 15 MG TAB) 15 Mg Tablet, 15 MG PO BID PRN for PAIN, #60 TAB Prov:DINORA BLACKMAN MD 04/01/19 Mirabegron (MYRBETRIQ) 50 Mg Tab.er.24h, 50 MG PO DAILY for 30 Days, #30 CAP Prov:WILL GUEVARA MD 03/18/19 Umeclidinium [place] (Incruse Ellipta) 62.5 Mcg Blst.w.dev, 1 INHALATION INH DAILY, #1 INHALER 2 Refills Prov:DINORA BLACKMAN MD 03/17/19 Atorvastatin Calcium (ATORVASTATIN CALCIUM) 40 Mg Tablet, 1 TAB PO QDAY, #90 TAB 3 Refills Prov:DINORA BLACKMAN MD 12/09/18 Levothyroxine Sodium (LEVOTHYROXINE SODIUM) 150 Mcg Tablet, 150 MCG PO QDAY, #90 TAB 3 Refills Prov:DINORA BLACKMAN MD 11/10/18 Apixaban (ELIQUIS) 5 Mg Tablet, 5 MG PO BID, #60 TAB 11 Refills Prov:DINORA BLACKMAN MD 10/27/18 Propranolol Hcl (PROPRANOLOL HCL) 60 Mg Cap.sa.24h, 1 CAP PO BID, #180 TAB 3 Refills Prov:DINORA BLACKMAN MD 10/27/18 Metformin Hcl (METFORMIN HCL ER) 500 Mg Tab.er.24, 1 TAB PO QDAY, #90 TAB 3 Refills Prov:DINORA BLACKMAN MD 10/26/18 Ezetimibe (ZETIA) 10 Mg Tablet, 1 TAB PO QDAY, #90 TAB 3 Refills Prov:DINORA BLACKMAN MD 09/04/18 Meclizine Hcl (MECLIZINE HCL) 25 Mg Tablet, 25 MG PO QID PRN for DIZZINESS, #360 TAB 3 Refills Prov:DINORA BLACKMAN MD 05/04/18 Cholecalciferol (Vitamin D3) (VITAMIN D3) 2,000 Unit Capsule, 2000 UNIT PO DAILY, #90 CAPSULE 3 Refills Prov:DINORA BLACKMAN MD 11/28/17 Reported Medications Cyanocobalamin (Vitamin B-12) (VITAMIN B-12) 2,500 Mcg Tab.subl, 2500 MCG SL DAILY 04/06/19 Ranitidine Hcl (ZANTAC) 150 Mg Tablet, 2 TAB PO HS, TAB 05/12/18 Aspirin/Sod Bicarb/Citric Acid (JAQUELIN-SELTZER ORIGINAL TAB EFF) 1 Each Tablet.eff, 1 EACH PO BID PRN for INDIGESTION 10/17/16 Discontinued Reported Medications Acetaminophen (TYLENOL EXTRA STRENGTH) 500 Mg Tablet, 1-2 TAB PO DAILY PRN for PAIN/HEADACHE, TAB 12/17/17 Albuterol Sulfate 90 Mcg/Act (PROAIR HFA 90 MCG/ACT) 8.5 Gm Hfa.aer.ad, 1-2 PUFF IH BID PRN for CONGESTION, INHALER 10/17/16 Discontinued Scripts Pantoprazole Sodium (PANTOPRAZOLE SODIUM) 40 Mg Tablet.dr, 1 TAB PO BIDAC, #90 TAB 3 Refills Prov:DINORA BLACKMAN MD 03/17/19 Diet: Regular Activity: As Tolerated Special Instructions: Your upper endoscopy was completed without problems. You have an old, healing ulcer in your lower stomach and you have a small hiatal hernia which I see in about 50% of people. All of your tissues otherwise look good. I took some biopsies of your stomach and small intestine to look for H.pylori infection and gluten enteropathy. My office will call you in the next day or two to schedule a follow up appointment to see me back in my office. Problem Qualifiers (1) GERD (gastroesophageal reflux disease): Esophagitis presence: without esophagitis Qualified Codes: K21.9 - Gastro- esophageal reflux disease without esophagitis JAMAL GARCIA MD April 28, 2019 08:10
--- NOTE | 2019-04-28 08:15 | NUR ---
0808 PT ARRIVED TO [place] VIA CART, SAFETY MAINTAINED, VSS, TACHY, PT OPENS EYES AND ACKNOWLEDGES INSTRUCTIONS, BUT DOES NOT RESPOND, DR. GARCIA AT BEDSIDE TO DESCRIBE FINDINGS TO DAUGHTER, MILIND, IVETTE FROM Irvin MENDES RN AND DR. RUBALCAVA. L LATERAL POSITION
[2019-04-28 08:30] VITALS: BP 123/78
[2019-04-28 08:50] VITALS: BP 148/104
[2019-04-28 08:54] VITALS: BP 120/104
--- NOTE | 2019-04-28 09:17 | NUR ---
0830 VSS, STILL TACHY, SPO2 DROPS OCCASIONALLY, BUT POPS RIGHT BACK UP TO MID 90S 0850 PT NEEDS TO USE RESTROOM, ORTHOSTATICS STARTED, SOME LIGHTHEADEDNESS WHEN SHE FIRST SAT UP, PASSED, STABLE, EXPERIENCED SOME STRESS INCONTINENCE WHEN STANDING, TO RESTROOM IN , ACCOMPANIED BY DAUGHTER, MILIND, SAFETY MAINTAINED 0900 PT ALLOWED TO DRESS WITH DAUGHTER'S HELP, 0910 D/C INSTRUCTIONS COVERED, IV OUT, PRESSURE DRESSING APPLIED 0915 OUT TO CAR VIA , ACCOMPANIED BY DAUGHTER AND Carol ROGER RN. OUTSIDE OF ER. INTO CAR AT 0918
[2019-04-28] MEDS ORDERED: NORMOSOL R SOLN(*) 1000 ML BAG 1,000 ML IV PRN (12:45)
[2019-04-28] MEDS ORDERED: LIDOCAINE/SOD BICARB 8.4% SYR ID ONE (12:45)
== END 2019-04-28 09:18 | disposition home or self-care (01) ==
LOC: OR 00:12
PROVIDERS: ATTEND Surgery
DX: K25.7 Chronic gastric ulcer without hemorrhage or perforation (principal); K44.9 Diaphragmatic hernia without obstruction or gangrene; E11.9 Type 2 diabetes mellitus without complications
CPT/HCPCS: 36416; 43239; 82948; 87077; 88305; J2001; J2704

== ENCOUNTER → 2019-06-18 | Outpatient (CLI) | payer MEDICARE, MEDICAID ==
[~2019-06-18] MED LIST changes: +DICY20TA70 PO; +HYOS0.128 PO; -OMEP-125 PO; +OMEP-126 PO; -RANI-366 PO; +RANI-54 PO; -TRAZ50TA34 PO; +TRAZ50TA52 PO
[2019-06-18 10:51] LABS: PLATELET COUNT, AUTOMATED 278 K/uL (150-450)
[2019-06-18 11:27] LABS: LDL CHOLESTEROL 52 mg/dl
== END ==
LOC: LAB 10:30
PROVIDERS: ATTEND Emergency Medicine
DX: E21.0 Primary hyperparathyroidism (principal); M85.80 Other specified disorders of bone density and structure, unspecified site; R73.03 Prediabetes; E03.9 Hypothyroidism, unspecified; E78.5 Hyperlipidemia, unspecified; I10 Essential (primary) hypertension
CPT/HCPCS: 36415; 82306; 82607; 83036; 84443; 85025; G0472; 82040; 82247; 82310; 82374; 82435; 82465; 82565; 82947; 83718; 84075; 84132; 84155; 84295; 84450; 84460; 84478; 84520; 86803

== ENCOUNTER 2019-07-05 23:21 | Emergency (ER) | payer MEDICARE, MEDICAID ==
--- NOTE | 2019-07-05 23:40 | EKG ---
[place] [facility] [place]: ADRIEL SON : [id number] MR: [id number] V: [id number] EXAM DATE: ORDERING PHYSICIAN: ESTIVEN IGLESIAS TECHNOLOGIST: BELLA Test Reason : CP Blood Pressure : / mmHG Vent. Rate : 089 BPM Atrial Rate : 340 BPM P-R Int : 000 ms QRS Dur : 080 ms QT Int : 350 ms P-R-T Axes : 000 -17 008 degrees QTc Int : 425 ms Atrial fibrillation Low voltage QRS Abnormal ECG When compared with ECG of 18-APR-2019 03:44, Nonspecific T wave abnormality now evident in Inferior leads Nonspecific T wave abnormality now evident in Anterior leads Confirmed by JOYCE HOBBS ([id number]) on 07/06/2019 6:50:03 AM Referred By: Confirmed By:JOYCE HOBBS
[2019-07-05 23:41] LABS: PLATELET COUNT, AUTOMATED 305 K/uL (150-450)
[2019-07-05 23:48] LABS: INR 1.06
[2019-07-05] MEDS ORDERED: MAG HYD/AL HYD/SIMETH 30ML UDC PO ONE (23:50)
[2019-07-05] MEDS ORDERED: ASPIRIN 81 MG CHEW PO ONE (23:50)
[2019-07-05] MEDS ORDERED: NS(*) 0.9% 1000 ML BAG 1,000 ML IV ONE (23:50)
[2019-07-05] MEDS ORDERED: LIDOCAINE 2% VISC SLN 15ML UDC PO ONE (23:50)
--- NOTE | 2019-07-05 23:55 | ER Report ---
History and Physical Time Seen By MD: 23:30 Hx. of Stated Complaint: PATIENT REPORTS BILATERAL CHEST TIGHTNESS WITH DIZZINESS. DENIES CHEST PAIN HPI/ROS CHIEF COMPLAINT: Lightheadedness, chest tightness HISTORY OF PRESENT ILLNESS: 63-year-old female was going to the bathroom tonight, with normal bowel movement. She states she has occasional bleeding from hemorrhoids, and noted blood in the toilet. She does not think this was in the stool. When she got up from the toilet she noted that she was lightheaded and felt like she may pass out. She sat down in her bed, and this symptom was followed by chest tightness. Tightness was across chest and radiated to both shoulders and neck. It does not radiate to the arms or back. Tightness is moderate in severity. It is still present and has been constant for 30 minutes. She has had similar symptoms in the past after which she had stress tests which were reportedly normal. She was told she had reflux. She states this is slightly more severe. She takes pantoprazole and Zantac daily for reflux. Patient has had no known heart attacks has never had a cardiac catheter. She had a brief episode of nausea with the symptoms though this is resolved. She has had no shortness b reath or diaphoresis. She has had no recent fevers. She has no diarrhea or constipation. She has no UTI symptoms. She has no new swelling. She has had no recent travel. She does report that she has ongoing right knee severe pain for which she is wheelchair bound. She is on elequis for afib. REVIEW OF SYSTEMS: Constitutional: No fever, no chills. Eyes: No discharge. ENT: No sore throat. Cardiovascular: above Respiratory: No cough, no shortness of breath. Gastrointestinal: No abdominal pain, no vomiting. Genitourinary: No hematuria. Musculoskeletal: No back pain. Skin: No rashes. Neurological: No headache. Remainder of the 14 system rev: Yes Allergies: Coded Allergies: No Known Drug Allergies (Verified , 07/05/19) Uncoded Allergies: ENVIRONMENTAL (Allergy, Mild, ASTHMA SX, 08/07/12) Home Meds Active Scripts Cephalexin 500 Mg Tab (KEFLEX 500 MG TAB) 500 Mg Tablet, 500 MG PO Q12H for 7 Days, #14 TAB Prov:ESTIVEN IGLESIAS MD 07/06/19 Dicyclomine Hcl (DICYCLOMINE HCL) 20 Mg Tablet, 20 MG PO QID PRN for PRN, #120 TAB 0 Refills Prov:DINORA BLACKMAN MD 06/23/19 Trazodone Hcl (TRAZODONE HCL) 50 Mg Tablet, 1-2 TAB PO QHS, #60 TAB 11 Refills Prov:DINORA BLACKMAN MD 06/21/19 Pantoprazole Sodium (PANTOPRAZOLE SODIUM) 40 Mg Tablet.dr, 1 TAB PO DAILY, #60 TAB 3 Refills Prov:DINORA BLACKMAN MD 06/21/19 Morphine Sulfate 15 Mg Tab (MORPHINE SULFATE 15 MG TAB) 15 Mg Tablet, 15 MG PO BID PRN for PAIN, #60 TAB Prov:DINORA BLACKMAN MD 05/11/19 Mirabegron (MYRBETRIQ) 50 Mg Tab.er.24h, 50 MG PO DAILY for 30 Days, #30 CAP Prov:WILL GUEVARA MD 03/18/19 Umeclidinium [place] (Incruse Ellipta) 62.5 Mcg Blst.w.dev, 1 INHALATION INH DAILY, #1 INHALER 2 Refills Prov:DINORA BLACKMAN MD 03/17/19 Atorvastatin Calcium (ATORVASTATIN CALCIUM) 40 Mg Tablet, 1 TAB PO QDAY, #90 TAB 3 Refills Prov:DINORA BLACKMAN MD 12/09/18 Levothyroxine Sodium (LEVOTHYROXINE SODIUM) 150 Mcg Tablet, 150 MCG PO QDAY, #90 TAB 3 Refills Prov:DINORA BLACKMAN MD 11/10/18 Apixaban (ELIQUIS) 5 Mg Tablet, 5 MG PO BID, #60 TAB 11 Refills Prov:DINORA BLACKMAN MD 10/27/18 Propranolol Hcl (PROPRANOLOL HCL) 60 Mg Cap.sa.24h, 1 CAP PO BID, #180 TAB 3 Refills Prov:DINORA BLACKMAN MD 10/27/18 Metformin Hcl (METFORMIN HCL ER) 500 Mg Tab.er.24, 1 TAB PO QDAY, #90 TAB 3 Refills Prov:DINORA BLACKMAN MD 10/26/18 Reported Medications Ranitidine Hcl (ZANTAC) 150 Mg Tablet, 2 TAB PO HS, TAB 05/12/18 Discontinued Scripts Meclizine Hcl (MECLIZINE HCL) 25 Mg Tablet, 0.5 TAB PO QID PRN for DIZZINESS, #360 TAB 3 Refills Prov:DINORA BLACKMAN MD 06/21/19 Ezetimibe (ZETIA) 10 Mg Tablet, 1 TAB PO QDAY, #90 TAB 3 Refills Prov:DINORA BLACKMAN MD 09/04/18 Reviewed Nurses Notes: Yes Old Medical Records Reviewed: Yes Hx Smoking: Yes (SMOKED 1/2 TO 1 PPD FOR 26 YEARS. CHEWED TOBACCO IN TEENS.) Smoking Status: Former Smoker Hx Substance Use Disorder: No Hx Alcohol Use: No Constitutional Vital Sign - Last 24 Hours 07/05/19 07/05/19 07/05/19 07/05/19 23:21 23:22 23:25 23:37 Temp 97.9 Pulse ??? 87 Resp 15 B/P (MAP) 128/84 (99) 128/84 121/109 (113) Pulse Ox 90 O2 Delivery Room Air 07/05/19 07/05/19 07/06/19 07/06/19 23:51 23:56 00:01 00:31 Pulse 88 84 99 93 Resp 18 12 23 Pulse Ox 93 94 93 07/06/19 07/06/19 07/06/19 07/06/19 00:36 01:00 01:30 02:00 Pulse 86 Resp 24 B/P (MAP) 95/57 (70) 99/73 (82) 97/76 (83) Pulse Ox 87 07/06/19 07/06/19 02:05 02:30 Pulse 76 Resp 11 B/P (MAP) 104/77 (86) Pulse Ox 91 Intake and Output 07/05/19 07/05/19 07/06/19 15:03 23:03 07:03 Intake Total 1000 ml Balance 1000 ml Physical Exam General Appearance: The patient is alert, has no immediate need for airway pr otection and no signs of toxicity. Eyes: Pupils equal and round no pallor or injection. ENT, Mouth: Mucous membranes are moist. Respiratory: There are no retractions, lungs are clear to auscultation. Cardiovascular: irregular rhythm, borderline tachycardia, no m/r/g Gastrointestinal: mild epigastric ttp at area that pt states is from where pain radiates. no peritoneal sgs. Nl bs. Neurological: alert, oriented x , no gross deficit Skin: Warm and dry, no rashes. Musculoskeletal: Neck is supple non tender. r knee ttp throughout, no edema or other focal ttp Rectal - blood noted around rectum c/w pt report. No abscess, mass, fluctuance noted. Pt has external hemorrhoid without thrombosis DIFFERENTIAL DIAGNOSIS: After history and physical exam differential diagnosis was considered for acs, pe, pneumonia, pneumothorax, aortic dissection, abdeominal etiology of pain, or other emergent cause of symptoms. Medical Decision Making Data Points Result Diagram: 07/05/197 07/05/197 Laboratory Hematology Test 07/05/19 23:27 White Blood Count 8.2 k/uL (4.5-11.0) Red Blood Count 4.55 M/uL (4.17-5.56) Hemoglobin 14.6 g/dL (12.0-16.0) Hematocrit 44.0 % (34.0-47.0) Mean Corpuscular Volume 96.8 fL (80.0-96.0) H Mean Corpuscular Hemoglobin 32.1 pg (26.0-33.0) Mean Corpuscular Hemoglobin Concent 33.2 g/dL (32.0-36.0) Red Cell Distribution Width 14.7 % (11.5-14.5) H Platelet Count 305 K/uL (150-450) Mean Platelet Volume 9.3 fL (7.2-11.1) Neutrophils (%) (Auto) 54.5 % (39.4-72.5) Lymphocytes (%) (Auto) 32.6 % (17.6-49.6) Monocytes (%) (Auto) 9.8 % (4.1-12.4) Eosinophils (%) (Auto) 2.7 % (0.4-6.7) Basophils (%) (Auto) 0.4 % (0.3-1.4) Nucleated RBC Relative Count (auto) 0.0 /100WBC Neutrophils # (Auto) 4.4 K/uL (2.0-7.4) Lymphocytes # (Auto) 2.7 K/uL (1.3-3.6) Monocytes # (Auto) 0.8 K/uL (0.3-1.0) Eosinophils # (Auto) 0.2 K/uL (0.0-0.5) Basophils # (Auto) 0.0 K/uL (0.0-0.1) Nucleated RBC Absolute Count (auto) 0.00 K/uL Chemistry Test 07/05/19 23:27 07/06/19 02:26 Sodium Level 141 mmol/L (137-145) Potassium Level 4.0 mmol/L (3.5-5.0) Chloride Level 108 mmol/L (98-107) Carbon Dioxide Level 23 mmol/L (22-31) Blood Urea Nitrogen 11 mg/dl (7-18) Creatinine 0.90 mg/dl (0.52-1.04) Glomerular Filtration Rate Calc > 60.0 Random Glucose 109 mg/dl (75-110) Lactate 1.6 mmol/L (0.7-2.1) Calcium Level 10.1 mg/dl (8.4-10.2) Total Bilirubin 0.9 mg/dl (0.2-1.3) Aspartate Amino Transf (AST/SGOT) 19 U/L (0-35) Alanine Aminotransferase (ALT/SGPT) 27 U/L (0-56) Alkaline Phosphatase 121 U/L (0-126) Total Protein 6.7 g/dl (6.3-8.2) Albumin 3.8 g/dl (3.5-5.0) Lipase 98 U/L (23-300) Troponin I < 0.012 ng/ml Coagulation Test 07/05/19 00:00 07/05/19 23:27 D-Dimer Quantitative (PE/DVT) < 0.27 ug/ml (0-0.50) Prothrombin Time 13.8 seconds (12.0-14.4) Prothromb Time International Ratio 1.06 Activated Partial Thromboplast Time 31 seconds (23-35) Urinalysis Test 07/06/19 02:35 Urine Color Yellow Urine Clarity Slightly-cloudy Urine pH 5.0 pH (4.8-9.5) Urine Specific [place] 1.021 Urine Protein 30 mg/dL (NEGATIVE) Urine Glucose (UA) Negative mg/dL (NEGATIVE) Urine Ketones Negative mg/dL (NEGATIVE) Urine Blood Moderate (NEGATIVE) Urine Nitrite Negative (NEGATIVE) Urine Bilirubin Negative (NEGATIVE) Urine Urobilinogen Negative mg/dL (0.2-1.9) Urine Leukocyte Esterase Moderate (NEGATIVE) Urine RBC 14 /HPF (0-2/HPF) Urine WBC 120 /HPF (0-5/HPF) Urine Squamous Epithelial Cells Many /LPF (</=FEW) Urine Transitional Epithelial Cells Few /LPF (NONE-FEW) Urine Bacteria Few /HPF (NONE-FEW) Urine Hyaline Casts Few /LPF (NONE-FEW) Urine Mucus Few /HPF (NONE-FEW) EKG/Imaging EKG Interpretation 12 lead EKG: Rhythm: atrial fibrillation [place]: normal QRS: normal ST segments: afib, low voltage, q wave III, avF Monitor Interpretation: Atrial Fibrillation ED Course/Re-evaluation ED Course 63 f presents with chest pain; non exertional and atypical with ekg unchanged from prior ekg's. Her heart score is 3 due to age and risk factors. Rpt troponin negative; no e/o ami, but as I discussed with pt, cannot r/o anginal chest pain/ischemia. I recommend stress test this wk; pt understands importance of f/u and will contact pcp in am for stress test scheduling. She feels improved in ED and does not have rtn of pain. Pt has ua concerning for uti; upon rpt questioning, she does note 2 d of hesitancy. I reviewed prior cultures; will tx with keflex and f/u with pcp for re-evaluation. Considered but doubt other emergent causes of symptoms. Decision to Disposition Date: Jul 06, 2019 Decision to Disposition Time: 03:06 Depart Departure Latest Vital Signs Vital Signs Date Time Temp Pulse Resp B/P (MAP) Pulse Ox O2 Delivery O2 Flow Rate FiO2 07/06/19 02:30 104/77 (86) 07/06/19 02:05 76 11 91 07/05/19 23:25 97.9 Room Air Impression: Primary Impression: Chest pain Additional Impression: UTI (urinary tract infection) Condition: Improved Disposition: HOME OR SELF-CARE Referrals: DINORA BLACKMAN MD (PCP) 2 Days New Scripts Cephalexin 500 Mg Tab (KEFLEX 500 MG TAB) 500 Mg Tablet 500 MG PO Q12H for 7 Days, #14 TAB Prov: ESTIVEN IGLESIAS MD 07/06/19 Patient Instructions: Chest Pain (ED), Urinary Tract Infection in Women (ED) Additional Instructions: As we discussed, I do not see signs of a heart attack, but your chest pain may be from your heart. You need to have a stress test scheduled by your primary doctor, optimally performed this week, to further evaluate your heart. Please return for concerning chest pain, difficulty breathing, or any concerns. You have signs of a urinary infection. Take medication as prescribed and follow up with your primary doctor to ensure resolution. Problem Qualifiers Primary Impression: Chest pain Chest pain type: unspecified Qualified Codes: R07.9 - Chest pain, unspecified Additional Impression: UTI (urinary tract infection) Urinary tract infection type: acute cystitis Hematuria presence: with hematuria Qualified Codes: N30.01 - Acute cystitis with hematuria ESTIVEN IGLESIAS MD Jul 05, 2019 23:55
--- NOTE | 2019-07-06 00:26 | RADIOLOGY IMAGING REPORT ---
FACILITY: [facility] PATIENT NAME: Melany Baker : 1955 MR: [id number] V: [id number] EXAM DATE: ORDERING PHYSICIAN: ESTIVEN IGLESIAS TECHNOLOGIST: Location: [facility] Patient: Melany Baker : 1955 Visit/Account:[id number] Date of Sevice: 07/05/2019 CHEST SINGLE AP Additional pertinent History: Chest pain COMPARISON STUDIES: 04/18/2019 FINDINGS: Support lines and catheters: EKG wire leads Lungs and Pleura: Lung lara well expanded with no infiltrates or consolidations. No parenchymal ma ss lesions are seen. There are no effusions Heart and vasculature: Negative. Nica and Mediastinum: Negative. Bones and Chest wall: Negative. Upper Abdomen: Negative. IMPRESSION: 1. Negative chest for acute cardiopulmonary disease. Report Dictated By: Billy Aponte MD at 07/06/2019 12:16 AM Report E-Signed By: Billy Aponte MD at 07/06/2019 12:18 AM WSN:[id number]
[2019-07-06] MEDS ORDERED: CEPHALEXIN MONO 500 MG CAP PO ONE (03:10)
[2019-07-06] MEDS ORDERED: CEPH500T7 PO (03:13)
== END 2019-07-06 03:21 | disposition home or self-care (01) ==
LOC: ER 23:39
DX: R07.9 Chest pain, unspecified (principal); N30.01 Acute cystitis with hematuria
CPT/HCPCS: 71045; 81001; 83605; 83690; 84484; 85025; 85379; 85610; 85730; 87077; 87088; 87186; 93005; 96360; 99284; A9270; J7030; 82040; 82247; 82310; 82374; 82435; 82565; 82947; 84075; 84132; 84155; 84295; 84450; 84460; 84520

== ENCOUNTER → 2019-07-20 | Outpatient (CLI) | payer MEDICARE, MEDICAID ==
[~2019-07-20] MED LIST changes: +CEPH500T7 PO; +CHOL100052 PO; +LEVO-85 PO; +REGADENOSON 0.4 MG/5 ML SYR ONE
--- NOTE | 2019-07-20 15:59 | RADIOLOGY IMAGING REPORT ---
FACILITY: [facility] PATIENT NAME: Melany Baker : 1955 MR: [id number] V: [id number] EXAM DATE: ORDERING PHYSICIAN: DINORA BLACKMAN TECHNOLOGIST: Location: [facility] Patient: Melany Baker : 1955 Visit/Account:[id number] Date of Sevice: 07/20/2019 EXAMINATION: Single isotope SPECT imaging with regadenoson infusion and gated SPECT imaging. DATE OF EXAMINATION: 07/20/2019. DATE OF INTERPRETATION: 07/20/2019. REQUESTING PHYSICIAN: DINORA BLACKMAN. INDICATION: The patient is a 63-year-old female evaluated for chest pain. PROCEDURE: After informed consent the patient received an intravenous injection of 11.6 mCi of Tc-99 m sestamibi followed at an appropriate time interval by rest imaging. The patient then subsequently received an intravenous infusion of 0.4 mg of regadenoson per protocol without complication. Resting heart rate was 83 bpm with a peak heart rate of 107 bpm. Blood pressure at rest was 109 / 74 and fo llowing infusion was 119 / 79. Baseline EKG demonstrates sinus rhythm. There were no EKG changes of ischemia following infusion. Symptoms were nonspecific. The patient then received an intravenous i njection of 29.7 mCi of Tc-99m sestamibi followed by stress imaging. RAW DATA: Examination of the summed raw data revealed a fair quality study. MYOCARDIAL PERFUSION: The tomographic images demonstrate a medium-sized inferior defect at rest whic h is mild in severity. This does not change with stress imaging. Prone imaging was not completed. Inf erior wall motion is normal.. GATED IMAGES: The gated images demonstrate hyperdynamic ejection fraction >70% with normal wall effie on and thickening.. IMPRESSION: 1. Nondiagnostic Lexiscan stress ECG 2. Abnormal myocardial perfusion scan, with evidence of a mild inferior defect. Prone imaging was no t done to this may be overestimated due to artifact. Wall motion is normal.. 3. Hyperdynamic LV systolic function; LVEF >70%. 4. Based on the results of this exam, the patient appears to be at low risk for future cardiovascular events. Report Dictated By: Edenilson Marina at 07/20/2019 3:49 PM Report E-Signed By: Edenilson Marina at 07/20/2019 3:52 PM WSN:[id number]
== END ==
LOC: NUC 01:08
PROVIDERS: ATTEND Emergency Medicine
DX: R93.1 Abnormal findings on diagnostic imaging of heart and coronary circulation (principal)
CPT/HCPCS: 78452; 81001; 93017; A9500; J2785